=== PATIENT | male | born 1990 | race Two or more races ===

== ENCOUNTER 2017-02-23 19:27 | Observation (INO) | payer OTHER ==
[~2017-02-23] VITALS: Ht 172.7 cm; Wt 63.5 kg
[2017-02-23 20:35] LABS: Basophils # (auto) 0 uL; Basophils % (auto) 0.5 % (0.0-2.0); Eosinophils # (auto) 0 uL; Eosinophils % (auto) 0.3 % (0.0-7.0); Hematocrit 49.1 % (41.0-53.0); Hemoglobin 16.8 g/dL (13.5-17.5); Lymphocytes # (auto) 0.8 uL; Lymphocytes % (auto) 18.2 % (10.0-50.0); Mean Corpuscular Hgb Conc. 34.3 g/dL (32.0-36.0); Mean Corpuscular Volume 84.6 fL (80.0-100.0); Mean Platelet Volume 8.1 fL (7.4-10.4); Monocytes # (auto) 0.5 uL; Neutrophils # (auto) 3.1 uL; Nucleated Red Blood Cells % 0.3 %; Platelet Count (auto) 120 10^3/uL (140-450); Red Cell Distribution Width 13.4 % (11.6-16.0); White Blood Cell 4.5 10^3/uL (4.4-10.8)
[2017-02-23 20:54] LABS: Acetaminophen 8.9 ug/mL (10-30); Salicylate < 1.7 mg/dL (2.8-20.0)
[2017-02-23 21:18] LABS: Anion Gap 12 (5-15); Carbon Dioxide 22 mmol/L (21-32); Chloride 101 mmol/L (98-107); Potassium 3.5 mmol/L (3.5-5.1); Sodium 135 mmol/L (136-145)
[2017-02-23 21:19] LABS: Alkaline Phosphatase 109 U/L (45-117); Aspartate Aminotransferase 90 U/L (15-37); BUN/Creatinine Ratio 17.6; Blood Urea Nitrogen 18 mg/dL (7-18); GFR African American 115 mL/min; GFR Non-African American 95 mL/min; Glucose 108 mg/dL (74-106)
[2017-02-23 21:20] LABS: Albumin 4.1 g/dL (3.4-5.0); Bilirubin, Total 1.1 mg/dL (0.2-1.0); Calcium 9.2 mg/dL (8.5-10.1); Magnesium 2.1 mg/dL (1.6-2.6); Total Protein 8.9 g/dL (6.4-8.2)
[2017-02-23] MEDS ORDERED: SODIUM CHLORIDE 0.9% 1,000 ML IV ONE (22:15)
[2017-02-24 02:55] LABS: Albumin 3.7 g/dL (3.4-5.0); Calcium 8.3 mg/dL (8.5-10.1); Potassium 3.9 mmol/L (3.5-5.1); Total Protein 7.9 g/dL (6.4-8.2)
[2017-02-24 12:00] VITALS: BP 112/87
== END 2017-02-24 12:17 | disposition home or self-care (01) | DRG 918 ==
LOC: EDBD 19:27 → ER 19:30 → OVERFLOW 22:16 → ER 02-24 12:17
PROVIDERS: ADMIT Emergency Medicine; ATTEND Emergency Medicine
DX: T36.4X2A Poisoning by tetracyclines, intentional self-harm, initial encounter (principal); T65.892A Toxic effect of other specified substances, intentional self-harm, initial encounter; F33.1 Major depressive disorder, recurrent, moderate; Y92.89 Other specified places as the place of occurrence of the external cause; F41.9 Anxiety disorder, unspecified
CPT/HCPCS: 36415; 80053; 80307; 80320; 80329; 83735; 85025; 93005; 96360; 99285; G0378; J7030